=== PATIENT | female | born 1980 | race Hispanic/Latino ===

== ENCOUNTER 2016-11-22 16:58 | Emergency (ER) | payer OTHER ==
[2016-11-22 17:09] VITALS: RESP 18
--- NOTE | 2016-11-22 18:33 | C.PDOC ---
History Of Present Illness 36 y/o female presents to the ED with complains of productive cough, congestion , fever which onset yesterday. Pt denies SOB, sore throat, nausea, vomiting or any other complaints. Time Seen by Provider: 11/22/16 17:38 Chief Complaint (Nursing): Flu-like Symptoms History Per: Patient History/Exam Limitations: no limitations Onset/Duration Of Symptoms: Hrs Current Symptoms Are (Timing): Still Present Sick Contacts (Context): None Associated Symptoms: Fever, Cough, Nasal Congestion. denies: Vomiting, Diarrhea Ear Symptoms: Bilateral: None Severity: Mild Recent travel outside of the [place]: No Past Medical History Reviewed: Historical Data, Nursing Documentation, Vital Signs Vital Signs: Last Vital Signs Temp 100.4 F H 11/22/16 18:34 Pulse 104 H 11/22/16 18:34 Resp 18 11/22/16 18:34 BP 131/85 11/22/16 18:34 Pulse Ox 98 11/22/16 19:13 Family History: States: Unknown Family Hx - Social History Hx Alcohol Use: No Hx Substance Use: No Review Of Systems Except As Marked, All Systems Reviewed And Found Negative. Constitutional: Positive for: Fever ENT: Positive for: Nose Congestion. Negative for: Throat Pain Respiratory: Positive for: Cough. Negative for: Shortness of Breath Gastrointestinal: Negative for: Vomiting, Diarrhea Physical Exam - Physical Exam Appears: Non-toxic, No Acute Distress, Other (obese) Skin: Warm, Dry, No Rash Head: Atraumatic, Normacephalic Eye(s): bilateral: Normal Inspection, EOMI Ear(s): Bilateral: Normal Nose: Discharge Oral Mucosa: Moist Throat: Normal, No Erythema Neck: Normal ROM, Supple Chest: Symmetrical Cardiovascular: Rhythm Regular, No Murmur Respiratory: Normal Breath Sounds, No Rales, No Rhonchi, No Wheezing Extremity: Bilateral: Atraumatic Neurological/Psych: Oriented x3, Normal Speech (speaking in full sentences), Normal Cognition ED Course And Treatment O2 Sat by Pulse Oximetry: 98 (on RA) Pulse Ox Interpretation: Normal - Radiology CXR: Interpreted by Me, Viewed By Me CXR Interpretation: Yes: Infiltrates (retrocardiac infiltrate) Progress Note: Plan: Motrin, tylenol, CXR, flu swab. No sOB. No chest pain. Instructed patient to follow up with PMD in 1-2 days of symptoms persist. Disposition - Disposition Disposition: HOME/ ROUTINE Disposition Time: 18:29 Condition: GOOD Additional Instructions: Follow up with primary medical doctor in 1-3 days without fail for further evaluation. Take medications as prescribed. Return to the emergency department at any time if symptoms persist or worsen. 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 - Scribe Statement The provider has reviewed the documentation as recorded by the Alla Thakkar All medical record entries made by the Alla were at my direction and personally dictated by me. I have reviewed the chart and agree that the record accurately reflects my personal performance of the history, physical exam, medical decision making, and the department course for this patient. I have also personally directed, reviewed, and agree with the discharge instructions and disposition.
[2016-11-22 18:34] VITALS: BP 131/85; PULSE 104; TEMP 100.4
[2016-11-22 18:36] VITALS: O2SAT 98
--- NOTE | 2016-11-22 18:48 | RAD ---
HISTORY: fever uri COMPARISON: Chest x-ray performed 01/07/16 TECHNIQUE: Chest PA and lateral FINDINGS: Examination limited by habitus and hypoinflation. LUNGS: Retrocardiac atelectasis or infiltrate. Please note that chest x-ray has limited sensitivity for the detection of pulmonary masses. PLEURA: No significant pleural effusion identified. No definite pneumothorax . CARDIOVASCULAR: Heart size appears top normal. OSSEOUS STRUCTURES: No acute osseous abnormality identified. VISUALIZED UPPER ABDOMEN: Unremarkable. OTHER FINDINGS: None. IMPRESSION: Retrocardiac atelectasis or infiltrate.
== END 2016-11-22 18:50 | disposition home or self-care (01) ==
LOC: C.ER 16:58
DX: J40 Bronchitis, not specified as acute or chronic (principal); J18.9 Pneumonia, unspecified organism